=== PATIENT | male | born 1970 | race Hispanic/Latino ===

== ENCOUNTER 2025-07-14 08:21 | Day surgery (SDC) | payer BC ==
[2025-07-13 11:16] LABS: IMMATURE GRANULOCYTE ABSOLUTE 0.01 K/uL (0-1); NUCLEATED RED BLOOD CELLS 0.0 % (0.0-0.19); PLATELET COUNT (AUTO) 250 K/uL (130-400); RED BLOOD CELL COUNT(AUTO) 5.65 MIL/uL (4.50-6.20); RED CELL DISTRIBUTION WIDTH 13.2 % (11.0-15.5); WHITE BLOOD COUNT (AUTO) 4.5 K/uL (4.8-10.8)
[2025-07-13 11:26] LABS: CREATININE 1.0 mg/dL (0.5-1.3); GLOMERULAR FILTR. RATE CALC 91.0 mL/min (>90); GLUCOSE,RANDOM 91.0 mg/dL (70-105); SODIUM SERUM 141.0 mmol/L (136-145); UREA NITROGEN, BLOOD 13.0 mg/dL (7-18)
[2025-07-13 11:37] LABS: INR 0.98 (0.85-1.15)
[2025-07-13 12:19] VITALS: BP 110/84; PULSE 74; RESP 12; TEMP 97.9
--- NOTE | 2025-07-13 12:22 | EKG ---
[facility] Test Date: 2025-07-13 Test Time: 11:07:30 Pat Name: SIERRA HUSTON Department: [facility] Room: Gender: M [employer]or: [id number] : 1970 Requested By: ADAIR COLUNGA Order Number: [id number] Reading MD: Josué Melgar Measurements Intervals [place] Rate: 70 P: 22 [place]: 161 QRS: -47 QRSD: 101 T: 22 QT: 399 QTc: 432 Interpretive Statements Sinus rhythm Left Anterior Hemiblock No previous ECG available for comparison Electronically Signed On 07-13-2025 21:34:55 CDT by Josué Melgar Please click the below link to view image of tracing.
[~2025-07-14] VITALS: Ht 175.3 cm; Wt 100.3 kg
[2025-07-14] VITALS (18 sets, daily range): BP systolic 110–129; BP diastolic 70–84; PULSE 82–97; RESP 14–18; TEMP 97.2–97.6
[~2025-07-14 08:21] MED LIST: AMLO-257 PO; ASPI1TAB7 PO; ATOR20TA65 PO; BACL10TA PO; HYDR12.54 PO; LACTATED RINGERS 1000ML 1,000 ML IV ONE; LORA10TA7 PO; LOSA100T59 PO; MILK THISTLE PO; OM3/1CAP3 PO; OMEP40CA21 PO; VITAMIN C PO; [UNRECOGNIZED DRUG - OTHER] PO
[2025-07-14] MEDS ORDERED: INDOCYANINE GREEN 25 MG VIAL IJ ONE (12:35)
[2025-07-14] MEDS ORDERED: SUGAMMADEX SODIUM 200 MG/2 ML VIAL IV ONE (12:49)
[2025-07-14] MEDS ORDERED: LIDOCAINE PF 100MG/5ML (2%) SYRINGE 5ML ONE (12:56)
[2025-07-14] MEDS ORDERED: MIDAZOLAM HCL 1 MG/ML 2ML VIAL ONE (12:57)
[2025-07-14] MEDS ORDERED: SUCCINYLCHOLINE CHLORIDE 20 MG/ML 10 ML VIAL ONE (12:57)
[2025-07-14] MEDS: INDOCYANINE GREEN 25 MG VIAL IJ ONE (13:10)
--- NOTE | 2025-07-14 15:39 | PN ---
GENERAL SURGERY PROGRESS NOTE Date/Time Patient Seen: [ 07/14/25 0001] Problem List: [ ] Interval History: [POD #0. Pain tolerable with PO PRN meds.] Physical Examination: GENERAL: [No acute distress.] ABD: [incisions C/D/I, Dermabond in place Vital Signs (last 8hr) Date Time Temp Pulse Resp B/P (MAP) Pulse Ox O2 Delivery O2 Flow Rate FiO2 07/14/25 08:50 97.5 85 18 123/84 97 Room Air 21 Laboratory: [ ] Hematology Labs: Test 07/13/25 11:05 Range/Units White Blood Count 4.5 L 4.8-10.8 K/uL Red Blood Count 5.65 4.50-6.20 MIL/uL Hemoglobin 16.8 14.0-18.0 g/dL Hematocrit 51.6 42-54 % Mean Corpuscular Volume 91.3 79-99 fL Mean Corpuscular Hemoglobin 29.7 27.0-33.0 pg Mean Corpuscular Hemoglobin Concent 32.6 32.0-36.0 g/dL Red Cell Distribution Width 13.2 11.0-15.5 % Platelet Count 250 130-400 K/uL Mean Platelet Volume 9.0 7.5-10.5 fL Immature Granulocyte % (Auto) 0.2 0-1 % Neutrophils (%) (Auto) 47.4 40.0-77.0 % Lymphocytes (%) (Auto) 40.7 21.0-51.0 % Monocytes (%) (Auto) 8.6 3.0-13.0 % Eosinophils (%) (Auto) 2.2 0.0-8.0 % Basophils (%) (Auto) 0.9 0.0-5.0 % Neutrophils # (Auto) 2.2 1.8-7.7 K/uL Lymphocytes # (Auto) 1.9 1.0-4.8 K/uL Monocytes # (Auto) 0.4 0.1-1.0 K/uL Eosinophils # (Auto) 0.10 0.00-0.70 K/uL Basophils # (Auto) 0.04 0.00-0.20 K/uL Absolute Immature Granulocyte (auto 0.01 0-1 K/uL Nucleated Red Blood Cells 0.0 0.0-0.19 % Chemistry Labs: Test 07/13/25 11:05 Range/Units Sodium Level 141 136-145 mmol/L Potassium Level 4.1 3.5-5.1 mmol/L Chloride Level 103 101-111 mmol/L Carbon Dioxide Level 29 21-32 mmol/L Blood Urea Nitrogen 13 7-18 mg/dL Creatinine 1.0 0.5-1.3 mg/dL Glomerular Filtration Rate Calc 91 >90 mL/min Random Glucose 91 70-105 mg/dL Total Calcium 9.4 8.5-10.1 mg/dL Coagulation Labs: Test 07/13/25 11:05 Range/Units Prothrombin Time 10.4 9.6-11.6 SEC Prothromb Time International Ratio 0.98 0.85-1.15 Activated Partial Thromboplast Time 27.8 26.3-35.5 SEC Diagnostics / Radiology: [Copy/Paste Echos/Imaging Report here] Impression and Plan: [ Plan is for dc home later today as long as pt tolerating PO liquids, ambulatory and pain under control. Discussed w pt and family, they understand and agree.] JESUS COLUNGA Jul 14, 2025 15:39
--- NOTE | 2025-07-14 16:07 | OP ---
Operative Note: DATE OF PROCEDURE: 07/14/25 SURGEON: ADAIR COLUNGA MD SCRAP HANDLER: Man Colunga MD PA-C ANESTHESIA: General and Local ANESTHESIOLOGIST/MINE BOSS: [facility] [place] team PREOPERATIVE DIAGNOSIS: Biliary Dyskinesia and chronic cholecystitis, Possible hiatal hernia POSTOPERATIVE DIAGNOSIS: As above. No clinically significant hiatal hernia. Large hepatic cysts affecting ability to safely retract liver. SYNOPSIS: Cholecystectomy with IC-Green cholangiogram, aborted hiatal hernia repair after EGD revealed no significant hiatal hernia PROCEDURE: Robotic assisted cholecystectomy with IC green cholangiogram EGD Aborted hiatal hernia repair due to no clinically significant visible hiatal hernia and large hepatic cysts affecting liver retraction ESTIMATED BLOOD LOSS: Minimal, less than 30 cc INDICATIONS: As above DESCRIPTION OF PROCEDURE: After standard precautions and preparations were undertaken a Veress needle and optical trocar were used to enter the abdominal cavity. All other instruments were placed under direct vision. The robotic system was docked in the standard fashion. We began our dissection by retracting the gallbladder cephalad and working to clear adhesions around the infundibulum. The patient had a significant amount of fatty adhesions indicating chronic inflammation in the area of the infundibulum of the gallbladder. Eventually we are able to achieve a critical view of safety by identifying a single ductal structure and a single vascular structure entering the infundibulum. We utilized IC green and firefly visual technology to eliminate the ductal system and confirmed our ductal anatomy. At this point we felt safe clipping and dividing the structures. This was completed and the gallbladder attachments were using monopolar cautery from the gallbladder fossa. The specimen was placed in an Endo-Catch bag and removed from the abdominal cavity without incident. We turned our attention to the hiatal hernia portion of the case. We elevated the left side of the liver and noted to large hepatic cysts, multilobular and irregular in shape. One on the lateral edge of the anterior surface of the left side of the liver and the other on the undersurface of the left side of the liver. These two dominant cysts were greater than 5-6 cm in greatest diameter. It would not have been safe to place a liver retractor in this area without potentially rupturing the cyst. We utilized our instruments to carefully lift the liver and examined the area of the hiatus. There was no clinically significant hiatal hernia. The diaphragm appeared flat and intact with no visible dimple or separation of the hiatal crura. We utilized the EGD scope at this time to verify the anatomy and felt comfortable that are gastroesophageal junction was resting below the level of the hiatus and there was no obvious hernia appreciated. Given the findings on the liver and the difficulty with safe liver retraction we felt comfortable aborting the hiatal hernia portion of the case. All instrument counts were verified as correct prior to ending the case including needles and sponges. ADAIR COLUNGA MD Jul 14, 2025 16:07
--- NOTE | 2025-07-14 16:52 | NUR ---
POST-OP RECOVERY ANTERIOR LOWER ABDOMEN ACROSS BELLY BUTTON 6 SMALL INCISIONS. DERMABOND TO 6 INCISIONS. NO ACTIVE BLEEDING OR ACTIVE DRAINAGE. NO REDNESS OR SWELLING NOTED TO INCISIONS. DRESSINGS CLEAN DRY AND INTACT WITH DERMABOND.
== END 2025-07-14 17:52 | disposition home or self-care (01) ==
LOC: DAH 08:21
PROVIDERS: ATTEND Surgery
DX: K81.1 Chronic cholecystitis (principal); K82.8 Other specified diseases of gallbladder; I10 Essential (primary) hypertension; K21.9 Gastro-esophageal reflux disease without esophagitis; G43.909 Migraine, unspecified, not intractable, without status migrainosus; I44.4 Left anterior fascicular block; J45.909 Unspecified asthma, uncomplicated; Z88.1 Allergy status to other antibiotic agents; Z79.01 Long term (current) use of anticoagulants; Z79.899 Other long term (current) drug therapy; Z53.8 Procedure and treatment not carried out for other reasons
CPT/HCPCS: 43235; 47563; S2900; 36415; 80048; 85025; 85610; 85730; 86850; 86900; 86901; 88304; 93005; J0330; J0690; J1100; J1171; J2003; J2250; J2371; J2405; J2704; J3010; J3490; J7120; A4213; A4215; A4216; A4221; A4222; A4223; A4600; A4663; A4930; A6260; J0665